=== PATIENT | female | born 1965 | race African-American/Black ===

== ENCOUNTER 2021-09-20 16:13 | Inpatient (IN) | payer OTHER ==
[2021-09-20 19:56] VITALS: BMI 29.4
[2021-09-20] MEDS ORDERED: LOPERAMIDE HCL 2 MG CAPSULE PO PRN (20:30)
[2021-09-20] MEDS ORDERED: BISMUTH SUBSALICYLATE 524 MG/30 ML PO PRN (20:30)
[2021-09-20] MEDS ORDERED: METHOCARBAMOL 500 MG TABLET PO PRN (20:30)
[2021-09-20] MEDS ORDERED: MAGNESIUM HYDROX 2400MG/30ML ORAL SUSPENSION 30 ML CUP PO PRN (20:30)
[2021-09-20] MEDS ORDERED: chlordiazePOXIDE HCL 25 MG CAPSULE PO PRN (20:30)
[2021-09-20] MEDS ORDERED: MAGNESIUM CITRATE 300 ML BOTTLE PO PRN (20:30)
[2021-09-20] MEDS ORDERED: BENZOCAINE/MENTHOL (CHLORASEPTIC ) LOZENGE MM PRN (20:30)
[2021-09-20] MEDS ORDERED: DICYCLOMINE HCL 10 MG CAPSULE PO PRN (20:30)
[2021-09-20] MEDS ORDERED: IBUPROFEN 600 MG TABLET (FP) PO PRN (20:30)
[2021-09-20] MEDS ORDERED: ACETAMINOPHEN 325 MG TABLET (FP) PO PRN ×2 (20:30)
[2021-09-20] MEDS ORDERED: ONDANSETRON *ODT* 4 MG TABLET SL PRN (20:30)
[2021-09-20] MEDS ORDERED: MAG HYDROX/AL HYDROX/SIMETH 30 ML UNIT-DOSE CUP PO PRN (20:30)
[2021-09-20] MEDS ORDERED: IBUPROFEN 400 MG TABLET (FP) PO PRN (20:30)
[2021-09-20] MEDS: THIAMINE HCL 100 MG TABLET (FP) PO SCH (23:37)
[2021-09-20] MEDS: MELATONIN 5 MG TABLETS PO SCH (23:37)
[2021-09-20] MEDS: chlordiazePOXIDE HCL 25 MG CAPSULE PO SCH (23:37)
[2021-09-21] MEDS: chlordiazePOXIDE HCL 25 MG CAPSULE PO SCH ×4 (06:35→22:24)
[2021-09-21 11:20] LABS: HEMATOCRIT 35.5 % (32.4-45.2); MCH 29.9 pg (25.7-33.7); MCHC 33.9 g/dl (32.0-36.0); MEAN CELL VOLUME 88.4 fl (80-96); MEAN PLT VOLUME 9.9 fl (7.5-11.1); PLATELET COUNT 275 10^3/uL (134-434); RBC 4.01 M/mm3 (3.60-5.2); RDW 14.9 % (11.6-15.6); WHITE BLOOD COUNT 6.1 K/mm3 (4.0-10.0)
[2021-09-21 11:37] LABS: ALBUMIN 3.4 g/dl (3.4-5.0); BLOOD UREA NITROGEN 19.3 mg/dL (7-18); CALCIUM 10.3 mg/dL (8.5-10.1)
[2021-09-21 11:41] LABS: BILIRUBIN,TOTAL 0.6 mg/dL (0.2-1)
[2021-09-21 11:44] LABS: TOT PROT 6.2 g/dl (6.4-8.2)
[2021-09-21] MEDS: LOSARTAN POTASSIUM 50 MG TABLET PO SCH (12:05)
[2021-09-21] MEDS: PRENATAL VITAMINS W/ FOLIC ACID TABLET (FP) PO SCH (12:06)
[2021-09-21] MEDS: NICOTINE 14 MG/24 HOURS TOPICAL PATCH TD SCH (12:06)
[2021-09-21] MEDS: NICOTINE 10 MG CARTRIDGE (INHALER) IH PRN (18:10)
[2021-09-21 20:29] LABS: HIV INTERPRETATION NEGATIVE (NEGATIVE)
[2021-09-21] MEDS: MELATONIN 5 MG TABLETS PO SCH (22:23)
[2021-09-21] MEDS: THIAMINE HCL 100 MG TABLET (FP) PO SCH (22:23)
[2021-09-22] MEDS: chlordiazePOXIDE HCL 25 MG CAPSULE PO SCH ×4 (06:46→22:39)
[2021-09-22] MEDS: LOSARTAN POTASSIUM 50 MG TABLET PO SCH (10:52)
[2021-09-22] MEDS: PRENATAL VITAMINS W/ FOLIC ACID TABLET (FP) PO SCH (10:52)
[2021-09-22] MEDS: NICOTINE 14 MG/24 HOURS TOPICAL PATCH TD SCH (10:53)
[2021-09-22] MEDS: MELATONIN 5 MG TABLETS PO SCH (22:39)
[2021-09-22] MEDS: THIAMINE HCL 100 MG TABLET (FP) PO SCH (22:39)
[2021-09-23] MEDS ORDERED: chlordiazePOXIDE HCL 10 MG CAPSULE PO PRN
[2021-09-23] MEDS: chlordiazePOXIDE HCL 10 MG CAPSULE PO SCH ×4 (06:41→22:49)
[2021-09-23] MEDS: PRENATAL VITAMINS W/ FOLIC ACID TABLET (FP) PO SCH (10:45)
[2021-09-23] MEDS: LOSARTAN POTASSIUM 50 MG TABLET PO SCH (10:45)
[2021-09-23] MEDS: NICOTINE 14 MG/24 HOURS TOPICAL PATCH TD SCH (10:46)
[2021-09-23] MEDS: MELATONIN 5 MG TABLETS PO SCH (22:48)
[2021-09-23] MEDS: THIAMINE HCL 100 MG TABLET (FP) PO SCH (22:48)
[2021-09-24] MEDS: chlordiazePOXIDE HCL 10 MG CAPSULE PO SCH ×2 (06:01→18:29)
[2021-09-24] MEDS: PRENATAL VITAMINS W/ FOLIC ACID TABLET (FP) PO SCH (10:14)
[2021-09-24] MEDS: NICOTINE 14 MG/24 HOURS TOPICAL PATCH TD SCH (10:14)
[2021-09-24] MEDS: LOSARTAN POTASSIUM 50 MG TABLET PO SCH (10:14)
[2021-09-24 22:16] VITALS: RESP 18
[2021-09-24] MEDS: THIAMINE HCL 100 MG TABLET (FP) PO SCH (22:50)
[2021-09-24] MEDS: MELATONIN 5 MG TABLETS PO SCH (22:50)
[2021-09-25] MEDS ORDERED: chlordiazePOXIDE HCL 10 MG CAPSULE PO ONE (05:00)
[2021-09-25] MEDS: NICOTINE 10 MG CARTRIDGE (INHALER) IH PRN ×2 (10:39→12:43)
[2021-09-25] MEDS: LOSARTAN POTASSIUM 50 MG TABLET PO SCH (10:39)
[2021-09-25] MEDS: NICOTINE 14 MG/24 HOURS TOPICAL PATCH TD SCH (10:39)
[2021-09-25] MEDS: PRENATAL VITAMINS W/ FOLIC ACID TABLET (FP) PO SCH (10:39)
[2021-09-25] MEDS ORDERED: cloNIDine HCL 0.1 MG TABLET PO ONE (15:30)
[2021-09-25] MEDS: THIAMINE HCL 100 MG TABLET (FP) PO SCH (22:27)
[2021-09-25] MEDS: MELATONIN 5 MG TABLETS PO SCH (22:27)
[2021-09-26] MEDS: LOSARTAN POTASSIUM 50 MG TABLET PO SCH (10:10)
[2021-09-26] MEDS: PRENATAL VITAMINS W/ FOLIC ACID TABLET (FP) PO SCH (10:10)
[2021-09-26] MEDS: NICOTINE 14 MG/24 HOURS TOPICAL PATCH TD SCH (10:11)
[2021-09-26] MEDS: NICOTINE 10 MG CARTRIDGE (INHALER) IH PRN (10:11)
[2021-09-26 13:00] VITALS: BP 138/89; PULSE 76; TEMP 97.8
== END 2021-09-26 16:02 | disposition home or self-care (01) | DRG 774 ==
LOC: YASAS 16:13 → Y3N 23:03
PROVIDERS: ADMIT Allergy & Immunology; ATTEND Surgery
PROC: HZ2ZZZZ Detoxification Services for Substance Abuse Treatment (ICD-10-PCS; principal; 2021-09-20)
DX: F10.230 Alcohol dependence with withdrawal, uncomplicated (principal); F14.20 Cocaine dependence, uncomplicated; F12.20 Cannabis dependence, uncomplicated; F17.210 Nicotine dependence, cigarettes, uncomplicated; F31.9 Bipolar disorder, unspecified; F41.9 Anxiety disorder, unspecified; I10 Essential (primary) hypertension; G47.00 Insomnia, unspecified; Z91.14 Patient's other noncompliance with medication regimen; Z56.0 Unemployment, unspecified
CPT/HCPCS: 36415; 80053; 85027; 86780; 87389; 87811; 93005; 93010; C9803-CS; U0003; U0005

== ENCOUNTER 2022-06-21 11:46 | Inpatient (IN) | payer OTHER ==
[2022-06-21 12:12] VITALS: BMI 31.3
[2022-06-21] MEDS ORDERED: ONDANSETRON *ODT* 4 MG TABLET SL PRN (15:21)
[2022-06-21] MEDS ORDERED: MAG HYDROX/AL HYDROX/SIMETH 30 ML UNIT-DOSE CUP PO PRN (15:21)
[2022-06-21] MEDS ORDERED: DICYCLOMINE HCL 10 MG CAPSULE PO PRN (15:21)
[2022-06-21] MEDS ORDERED: MAGNESIUM HYDROX 2400MG/30ML ORAL SUSPENSION 30 ML CUP PO PRN (15:21)
[2022-06-21] MEDS ORDERED: NALOXONE HCL (KLOXXADO) 8 MG SPRAY NS PRN (15:21)
[2022-06-21] MEDS ORDERED: NICOTINE 10 MG CARTRIDGE (INHALER) IH PRN (15:21)
[2022-06-21] MEDS ORDERED: chlordiazePOXIDE HCL 25 MG CAPSULE PO PRN (15:21)
[2022-06-21] MEDS ORDERED: IBUPROFEN 400 MG TABLET (FP) PO PRN (15:21)
[2022-06-21] MEDS ORDERED: NALOXONE HCL 0.4 MG/ML VIAL IM PRN (15:21)
[2022-06-21] MEDS ORDERED: COLLOIDAL OATMEAL 1 BAR EACH TP PRN (15:21)
[2022-06-21] MEDS ORDERED: NICOTINE POLACRILEX 2 MG GUM BUC PRN (15:21)
[2022-06-21] MEDS ORDERED: BENZOCAINE/MENTHOL (CHLORASEPTIC ) LOZENGE MM PRN (15:21)
[2022-06-21] MEDS ORDERED: BISMUTH SUBSALICYLATE 262 MG/15 ML BTL PO PRN (15:21)
[2022-06-21] MEDS ORDERED: ACETAMINOPHEN 325 MG TABLET (FP) PO PRN (15:21)
[2022-06-21] MEDS ORDERED: IBUPROFEN 600 MG TABLET (FP) PO PRN (15:21)
[2022-06-21] MEDS ORDERED: BENZONATATE 200 MG CAPSULE PO PRN (15:21)
[2022-06-21] MEDS ORDERED: AMMONIUM LACTATE 12% LOTION 225 GM BOTTLE TP PRN (15:21)
[2022-06-21] MEDS ORDERED: guaiFENesin 600 MG TABLET.ER (FP) PO PRN (15:21)
[2022-06-21] MEDS ORDERED: METHOCARBAMOL 500 MG TABLET PO PRN (15:21)
[2022-06-21] MEDS ORDERED: LOPERAMIDE HCL 2 MG CAPSULE PO PRN (15:21)
[2022-06-21] MEDS ORDERED: POLYETHYLENE GLYCOL (HEALTHYLAX) 3350 17 GM PACKET PO PRN (15:21)
[2022-06-21] MEDS: chlordiazePOXIDE HCL 25 MG CAPSULE PO SCH ×2 (16:15→22:56)
[2022-06-21] MEDS ORDERED: chlordiazePOXIDE HCL 25 MG CAPSULE ONE (16:28)
[2022-06-21 17:56] LABS: HEMATOCRIT 38.3 % (32.4-45.2); HEMOGLOBIN 13.1 GM/dL (10.7-15.3); MCH 29.7 pg (25.7-33.7); MCHC 34.4 g/dl (32.0-36.0); MEAN CELL VOLUME 86.3 fl (80-96); MEAN PLT VOLUME 8.8 fl (7.5-11.1); PLATELET COUNT 344 10^3/uL (134-434); RBC 4.43 M/mm3 (3.60-5.2); RDW 14.3 % (11.6-15.6); WHITE BLOOD COUNT 6.6 K/mm3 (4.0-10.0)
[2022-06-21 18:00] LABS: POTASSIUM 4.1 mmol/L (3.5-5.1)
[2022-06-21 18:05] LABS: ALBUMIN 3.7 g/dl (3.4-5.0); BLOOD UREA NITROGEN 12.4 mg/dL (7-18)
[2022-06-21 18:09] LABS: BILIRUBIN,TOTAL 0.4 mg/dL (0.2-1)
[2022-06-21] MEDS ORDERED: MELATONIN 5 MG TABLETS PO SCH (22:00)
[2022-06-21] MEDS: THIAMINE HCL 100 MG TABLET (FP) PO SCH (22:56)
[2022-06-22] MEDS: chlordiazePOXIDE HCL 25 MG CAPSULE PO SCH ×4 (05:55→22:35)
[2022-06-22] MEDS: LOSARTAN POTASSIUM 50 MG TABLET PO SCH (10:47)
[2022-06-22] MEDS: PRENATAL VITAMINS W/ FOLIC ACID TABLET (FP) PO SCH (10:57)
[2022-06-22] MEDS: THIAMINE HCL 100 MG TABLET (FP) PO SCH (22:34)
[2022-06-23] MEDS: chlordiazePOXIDE HCL 25 MG CAPSULE PO SCH ×4 (06:00→22:43)
[2022-06-23] MEDS: PRENATAL VITAMINS W/ FOLIC ACID TABLET (FP) PO SCH (10:06)
[2022-06-23] MEDS: LOSARTAN POTASSIUM 50 MG TABLET PO SCH ×2 (10:06→18:30)
[2022-06-23] MEDS: THIAMINE HCL 100 MG TABLET (FP) PO SCH (22:43)
[2022-06-23] MEDS: traZODone HCL 100 MG TABLET (FP) PO PRN (22:43)
[2022-06-24] MEDS ORDERED: chlordiazePOXIDE HCL 10 MG CAPSULE PO PRN
[2022-06-24] MEDS: chlordiazePOXIDE HCL 10 MG CAPSULE PO SCH ×4 (06:10→22:13)
[2022-06-24] MEDS: PRENATAL VITAMINS W/ FOLIC ACID TABLET (FP) PO SCH (10:55)
[2022-06-24] MEDS: LOSARTAN POTASSIUM 50 MG TABLET PO SCH (10:55)
[2022-06-24] MEDS: THIAMINE HCL 100 MG TABLET (FP) PO SCH (22:13)
[2022-06-24] MEDS: traZODone HCL 100 MG TABLET (FP) PO PRN (22:13)
[2022-06-25] MEDS: chlordiazePOXIDE HCL 10 MG CAPSULE PO SCH ×2 (05:55→17:22)
[2022-06-25] MEDS: LOSARTAN POTASSIUM 50 MG TABLET PO SCH (09:38)
[2022-06-25] MEDS: PRENATAL VITAMINS W/ FOLIC ACID TABLET (FP) PO SCH (09:38)
[2022-06-25 12:03] LABS: CALCIUM 10.3 mg/dL (8.5-10.1); CREATININE 0.9 mg/dL (0.55-1.3)
[2022-06-25] MEDS: THIAMINE HCL 100 MG TABLET (FP) PO SCH (22:22)
[2022-06-26] MEDS ORDERED: chlordiazePOXIDE HCL 10 MG CAPSULE PO ONE (05:00)
[2022-06-26] MEDS: PRENATAL VITAMINS W/ FOLIC ACID TABLET (FP) PO SCH (09:30)
[2022-06-26] MEDS: LOSARTAN POTASSIUM 50 MG TABLET PO SCH (09:30)
[2022-06-26 10:59] VITALS: BP 152/92; PULSE 81; RESP 17; TEMP 97
== END 2022-06-26 12:36 | disposition other institution (70) | DRG 774 ==
LOC: YASAS 11:46 → Y6N 15:39
PROVIDERS: ADMIT Allergy & Immunology; ATTEND Surgery
PROC: HZ2ZZZZ Detoxification Services for Substance Abuse Treatment (ICD-10-PCS; principal; 2022-06-21)
DX: F10.230 Alcohol dependence with withdrawal, uncomplicated (principal); F14.20 Cocaine dependence, uncomplicated; F12.20 Cannabis dependence, uncomplicated; F17.210 Nicotine dependence, cigarettes, uncomplicated; F31.9 Bipolar disorder, unspecified; F19.282 Other psychoactive substance dependence with psychoactive substance-induced sleep disorder; E83.52 Hypercalcemia; E87.8 Other disorders of electrolyte and fluid balance, not elsewhere classified; G47.00 Insomnia, unspecified; I10 Essential (primary) hypertension; R73.9 Hyperglycemia, unspecified; Z62.810 Personal history of physical and sexual abuse in childhood; Z91.410 Personal history of adult physical and sexual abuse
CPT/HCPCS: 36415; 80048; 80053; 82140; 83036; 85027; 86780; C9803-CS; Q0162; U0003; U0005

== ENCOUNTER 2022-06-26 12:43 | Inpatient (IN) | payer OTHER ==
[2022-06-26] MEDS ORDERED: POLYETHYLENE GLYCOL (HEALTHYLAX) 3350 17 GM PACKET PO PRN (14:01)
[2022-06-26] MEDS ORDERED: BACLOFEN 10 MG TABLET (FP) PO PRN (14:01)
[2022-06-26] MEDS ORDERED: COLLOIDAL OATMEAL 1 BAR EACH TP PRN (14:01)
[2022-06-26] MEDS ORDERED: IBUPROFEN 400 MG TABLET (FP) PO PRN (14:01)
[2022-06-26] MEDS ORDERED: BENZOCAINE/MENTHOL (CHLORASEPTIC ) LOZENGE MM PRN (14:01)
[2022-06-26] MEDS ORDERED: MAG HYDROX/AL HYDROX/SIMETH 30 ML UNIT-DOSE CUP PO PRN (14:01)
[2022-06-26] MEDS ORDERED: IBUPROFEN 600 MG TABLET (FP) PO PRN (14:01)
[2022-06-26] MEDS ORDERED: guaiFENesin 600 MG TABLET.ER (FP) PO PRN (14:01)
[2022-06-26] MEDS ORDERED: NICOTINE 10 MG CARTRIDGE (INHALER) IH PRN (14:01)
[2022-06-26] MEDS ORDERED: BENZONATATE 200 MG CAPSULE PO PRN (14:01)
[2022-06-26] MEDS ORDERED: ACETAMINOPHEN 325 MG TABLET (FP) PO PRN (14:01)
[2022-06-26] MEDS ORDERED: AMMONIUM LACTATE 12% LOTION 225 GM BOTTLE TP PRN (14:01)
[2022-06-26] MEDS ORDERED: NALOXONE HCL 0.4 MG/ML VIAL IVPUSH PRN (14:01)
[2022-06-26] MEDS ORDERED: MAGNESIUM HYDROX 2400MG/30ML ORAL SUSPENSION 30 ML CUP PO PRN (14:01)
[2022-06-26] MEDS ORDERED: LOPERAMIDE HCL 2 MG CAPSULE PO PRN (14:01)
[2022-06-26] MEDS ORDERED: NALOXONE HCL (KLOXXADO) 8 MG SPRAY NS PRN (14:01)
[2022-06-26] MEDS: hydrOXYzine PAMOATE 25 MG CAPSULE (FP) PO PRN (14:35)
[2022-06-26] MEDS: MELATONIN 5 MG TABLETS PO SCH (21:36)
[2022-06-26] MEDS: THIAMINE HCL 100 MG TABLET (FP) PO SCH (21:36)
[2022-06-26] MEDS: traZODone HCL 100 MG TABLET (FP) PO PRN (21:37)
[2022-06-27] MEDS: PRENATAL VITAMINS W/ FOLIC ACID TABLET (FP) PO SCH (10:19)
[2022-06-27] MEDS: LOSARTAN POTASSIUM 50 MG TABLET PO SCH (10:19)
[2022-06-27] MEDS: hydrOXYzine PAMOATE 25 MG CAPSULE (FP) PO PRN (10:19)
[2022-06-27] MEDS: MELATONIN 5 MG TABLETS PO SCH (21:54)
[2022-06-27] MEDS: THIAMINE HCL 100 MG TABLET (FP) PO SCH (21:54)
[2022-06-27] MEDS: traZODone HCL 100 MG TABLET (FP) PO PRN (21:54)
[2022-06-28] MEDS: PRENATAL VITAMINS W/ FOLIC ACID TABLET (FP) PO SCH (10:28)
[2022-06-28] MEDS: hydrOXYzine PAMOATE 25 MG CAPSULE (FP) PO PRN (10:28)
[2022-06-28] MEDS: LOSARTAN POTASSIUM 50 MG TABLET PO SCH (10:28)
[2022-06-28] MEDS: THIAMINE HCL 100 MG TABLET (FP) PO SCH (22:28)
[2022-06-28] MEDS: MELATONIN 5 MG TABLETS PO SCH (22:28)
[2022-06-29] MEDS: PRENATAL VITAMINS W/ FOLIC ACID TABLET (FP) PO SCH (09:47)
[2022-06-29] MEDS: LOSARTAN POTASSIUM 50 MG TABLET PO SCH (09:47)
[2022-06-29] MEDS: hydrOXYzine PAMOATE 25 MG CAPSULE (FP) PO PRN ×2 (09:47→21:34)
[2022-06-29] MEDS: LACTULOSE 20 GM/30 ML UDC (FOR ORAL USE ONLY) PO SCH (21:34)
[2022-06-29] MEDS: THIAMINE HCL 100 MG TABLET (FP) PO SCH (21:34)
[2022-06-29] MEDS: MELATONIN 5 MG TABLETS PO SCH (21:34)
[2022-06-29] MEDS: traZODone HCL 100 MG TABLET (FP) PO PRN (21:36)
[2022-06-30] MEDS: LACTULOSE 20 GM/30 ML UDC (FOR ORAL USE ONLY) PO SCH ×2 (10:15→21:25)
[2022-06-30] MEDS: PRENATAL VITAMINS W/ FOLIC ACID TABLET (FP) PO SCH (10:15)
[2022-06-30] MEDS: LOSARTAN POTASSIUM 50 MG TABLET PO SCH (10:15)
[2022-06-30] MEDS: THIAMINE HCL 100 MG TABLET (FP) PO SCH (21:25)
[2022-06-30] MEDS: traZODone HCL 100 MG TABLET (FP) PO PRN (21:25)
[2022-06-30] MEDS: MELATONIN 5 MG TABLETS PO SCH (21:45)
[2022-07-01] MEDS: LACTULOSE 20 GM/30 ML UDC (FOR ORAL USE ONLY) PO SCH ×2 (10:22→21:15)
[2022-07-01] MEDS: PRENATAL VITAMINS W/ FOLIC ACID TABLET (FP) PO SCH (10:22)
[2022-07-01] MEDS: LOSARTAN POTASSIUM 50 MG TABLET PO SCH (10:22)
[2022-07-01] MEDS: THIAMINE HCL 100 MG TABLET (FP) PO SCH (21:15)
[2022-07-01] MEDS: traZODone HCL 100 MG TABLET (FP) PO PRN (21:15)
[2022-07-01] MEDS: hydrOXYzine PAMOATE 25 MG CAPSULE (FP) PO PRN (21:15)
[2022-07-01] MEDS: MELATONIN 5 MG TABLETS PO SCH (21:59)
[2022-07-02] MEDS: PRENATAL VITAMINS W/ FOLIC ACID TABLET (FP) PO SCH (10:09)
[2022-07-02] MEDS: LACTULOSE 20 GM/30 ML UDC (FOR ORAL USE ONLY) PO SCH ×2 (10:10→21:42)
[2022-07-02] MEDS: LOSARTAN POTASSIUM 50 MG TABLET PO SCH (10:11)
[2022-07-02] MEDS: MELATONIN 5 MG TABLETS PO SCH (21:42)
[2022-07-02] MEDS: traZODone HCL 100 MG TABLET (FP) PO PRN (21:42)
[2022-07-02] MEDS: ATORVASTATIN CA 10 MG TABLET (FP) PO SCH (21:42)
[2022-07-02] MEDS: GABAPENTIN 300 MG CAPSULE PO SCH (21:42)
[2022-07-02] MEDS: THIAMINE HCL 100 MG TABLET (FP) PO SCH (21:42)
[2022-07-03] MEDS: PRENATAL VITAMINS W/ FOLIC ACID TABLET (FP) PO SCH (09:54)
[2022-07-03] MEDS: LOSARTAN POTASSIUM 50 MG TABLET PO SCH (09:54)
[2022-07-03] MEDS: CHLORTHALIDONE 25 MG TABLET PO SCH (09:54)
[2022-07-03] MEDS: GABAPENTIN 300 MG CAPSULE PO SCH ×2 (09:54→21:41)
[2022-07-03] MEDS: LACTULOSE 20 GM/30 ML UDC (FOR ORAL USE ONLY) PO SCH ×2 (09:54→21:41)
[2022-07-03] MEDS: ARIPiprazole 5 MG TABLET PO SCH (09:54)
[2022-07-03] MEDS: THIAMINE HCL 100 MG TABLET (FP) PO SCH (21:41)
[2022-07-03] MEDS: ATORVASTATIN CA 10 MG TABLET (FP) PO SCH (21:41)
[2022-07-03] MEDS: MELATONIN 5 MG TABLETS PO SCH (21:41)
[2022-07-03] MEDS: traZODone HCL 100 MG TABLET (FP) PO PRN (21:41)
[2022-07-04] MEDS: LACTULOSE 20 GM/30 ML UDC (FOR ORAL USE ONLY) PO SCH ×2 (09:48→21:37)
[2022-07-04] MEDS: GABAPENTIN 300 MG CAPSULE PO SCH ×2 (09:48→21:37)
[2022-07-04] MEDS: LOSARTAN POTASSIUM 50 MG TABLET PO SCH (09:48)
[2022-07-04] MEDS: PRENATAL VITAMINS W/ FOLIC ACID TABLET (FP) PO SCH (09:48)
[2022-07-04] MEDS: ARIPiprazole 5 MG TABLET PO SCH (09:49)
[2022-07-04] MEDS: CHLORTHALIDONE 25 MG TABLET PO SCH (09:49)
[2022-07-04] MEDS: THIAMINE HCL 100 MG TABLET (FP) PO SCH (21:37)
[2022-07-04] MEDS: traZODone HCL 100 MG TABLET (FP) PO PRN (21:37)
[2022-07-04] MEDS: ATORVASTATIN CA 10 MG TABLET (FP) PO SCH (21:37)
[2022-07-04] MEDS: MELATONIN 5 MG TABLETS PO SCH (21:37)
[2022-07-05] MEDS: PRENATAL VITAMINS W/ FOLIC ACID TABLET (FP) PO SCH (10:25)
[2022-07-05] MEDS: GABAPENTIN 300 MG CAPSULE PO SCH ×2 (10:25→21:28)
[2022-07-05] MEDS: ARIPiprazole 5 MG TABLET PO SCH (10:25)
[2022-07-05] MEDS: LOSARTAN POTASSIUM 50 MG TABLET PO SCH (10:25)
[2022-07-05] MEDS: CHLORTHALIDONE 25 MG TABLET PO SCH (10:26)
[2022-07-05] MEDS: LACTULOSE 20 GM/30 ML UDC (FOR ORAL USE ONLY) PO SCH ×2 (10:26→21:28)
[2022-07-05] MEDS ORDERED: NICOTINE 14 MG/24 HOURS TOPICAL PATCH TD SCH (10:30)
[2022-07-05] MEDS: MELATONIN 5 MG TABLETS PO SCH (21:28)
[2022-07-05] MEDS: THIAMINE HCL 100 MG TABLET (FP) PO SCH (21:28)
[2022-07-05] MEDS: ATORVASTATIN CA 10 MG TABLET (FP) PO SCH (21:28)
[2022-07-06 08:24] VITALS: RESP 18
[2022-07-06] MEDS: PRENATAL VITAMINS W/ FOLIC ACID TABLET (FP) PO SCH (10:12)
[2022-07-06] MEDS: LOSARTAN POTASSIUM 50 MG TABLET PO SCH (10:12)
[2022-07-06] MEDS: CHLORTHALIDONE 25 MG TABLET PO SCH (10:13)
[2022-07-06] MEDS: GABAPENTIN 300 MG CAPSULE PO SCH ×2 (10:13→21:25)
[2022-07-06] MEDS: ARIPiprazole 5 MG TABLET PO SCH (10:13)
[2022-07-06] MEDS: LACTULOSE 20 GM/30 ML UDC (FOR ORAL USE ONLY) PO SCH ×2 (10:14→21:28)
[2022-07-06] MEDS: traZODone HCL 100 MG TABLET (FP) PO PRN (21:25)
[2022-07-06] MEDS: ATORVASTATIN CA 10 MG TABLET (FP) PO SCH (21:25)
[2022-07-06] MEDS: THIAMINE HCL 100 MG TABLET (FP) PO SCH (21:26)
[2022-07-06] MEDS: MELATONIN 5 MG TABLETS PO SCH (21:26)
[2022-07-07] MEDS: GABAPENTIN 300 MG CAPSULE PO SCH ×2 (10:33→21:29)
[2022-07-07] MEDS: LOSARTAN POTASSIUM 50 MG TABLET PO SCH (10:33)
[2022-07-07] MEDS: ARIPiprazole 5 MG TABLET PO SCH (10:33)
[2022-07-07] MEDS: LACTULOSE 20 GM/30 ML UDC (FOR ORAL USE ONLY) PO SCH ×2 (10:33→21:29)
[2022-07-07] MEDS: PRENATAL VITAMINS W/ FOLIC ACID TABLET (FP) PO SCH (10:35)
[2022-07-07] MEDS: CHLORTHALIDONE 25 MG TABLET PO SCH (10:35)
[2022-07-07] MEDS: traZODone HCL 100 MG TABLET (FP) PO PRN (21:29)
[2022-07-07] MEDS: ATORVASTATIN CA 10 MG TABLET (FP) PO SCH (21:30)
[2022-07-07] MEDS: THIAMINE HCL 100 MG TABLET (FP) PO SCH (21:59)
[2022-07-07] MEDS: MELATONIN 5 MG TABLETS PO SCH (21:59)
[2022-07-08] MEDS: ARIPiprazole 5 MG TABLET PO SCH (10:47)
[2022-07-08] MEDS: PRENATAL VITAMINS W/ FOLIC ACID TABLET (FP) PO SCH (10:47)
[2022-07-08] MEDS: GABAPENTIN 300 MG CAPSULE PO SCH ×2 (10:47→21:46)
[2022-07-08] MEDS: CHLORTHALIDONE 25 MG TABLET PO SCH (10:47)
[2022-07-08] MEDS: LACTULOSE 20 GM/30 ML UDC (FOR ORAL USE ONLY) PO SCH ×2 (10:47→21:47)
[2022-07-08] MEDS: LOSARTAN POTASSIUM 50 MG TABLET PO SCH (10:47)
[2022-07-08] MEDS: THIAMINE HCL 100 MG TABLET (FP) PO SCH (21:46)
[2022-07-08] MEDS: ATORVASTATIN CA 10 MG TABLET (FP) PO SCH (21:46)
[2022-07-08] MEDS: traZODone HCL 50 MG TABLET (FP) PO PRN (21:46)
[2022-07-08] MEDS: MELATONIN 5 MG TABLETS PO SCH (21:46)
[2022-07-08] MEDS: hydrOXYzine PAMOATE 25 MG CAPSULE (FP) PO PRN (21:47)
[2022-07-09] MEDS: LOSARTAN POTASSIUM 50 MG TABLET PO SCH (14:41)
[2022-07-09] MEDS: GABAPENTIN 300 MG CAPSULE PO SCH ×2 (14:41→21:50)
[2022-07-09] MEDS: PRENATAL VITAMINS W/ FOLIC ACID TABLET (FP) PO SCH (14:41)
[2022-07-09] MEDS: LACTULOSE 20 GM/30 ML UDC (FOR ORAL USE ONLY) PO SCH ×2 (14:41→21:50)
[2022-07-09] MEDS: ARIPiprazole 5 MG TABLET PO SCH (14:41)
[2022-07-09] MEDS: CHLORTHALIDONE 25 MG TABLET PO SCH (14:41)
[2022-07-09] MEDS: MELATONIN 5 MG TABLETS PO SCH (21:50)
[2022-07-09] MEDS: ATORVASTATIN CA 10 MG TABLET (FP) PO SCH (21:50)
[2022-07-09] MEDS: THIAMINE HCL 100 MG TABLET (FP) PO SCH (21:50)
[2022-07-10] MEDS: PRENATAL VITAMINS W/ FOLIC ACID TABLET (FP) PO SCH (10:04)
[2022-07-10] MEDS: GABAPENTIN 300 MG CAPSULE PO SCH ×2 (10:04→21:48)
[2022-07-10] MEDS: LACTULOSE 20 GM/30 ML UDC (FOR ORAL USE ONLY) PO SCH ×2 (10:04→21:50)
[2022-07-10] MEDS: LOSARTAN POTASSIUM 50 MG TABLET PO SCH (10:04)
[2022-07-10] MEDS: ARIPiprazole 5 MG TABLET PO SCH (10:04)
[2022-07-10] MEDS: CHLORTHALIDONE 25 MG TABLET PO SCH (10:05)
[2022-07-10] MEDS: THIAMINE HCL 100 MG TABLET (FP) PO SCH (21:48)
[2022-07-10] MEDS: ATORVASTATIN CA 10 MG TABLET (FP) PO SCH (21:48)
[2022-07-10] MEDS: MELATONIN 5 MG TABLETS PO SCH (21:48)
[2022-07-10] MEDS: traZODone HCL 50 MG TABLET (FP) PO PRN (21:48)
[2022-07-11] MEDS: PRENATAL VITAMINS W/ FOLIC ACID TABLET (FP) PO SCH (09:50)
[2022-07-11] MEDS: ARIPiprazole 5 MG TABLET PO SCH (09:51)
[2022-07-11] MEDS: GABAPENTIN 300 MG CAPSULE PO SCH ×2 (09:51→21:28)
[2022-07-11] MEDS: LOSARTAN POTASSIUM 50 MG TABLET PO SCH (09:51)
[2022-07-11] MEDS: LACTULOSE 20 GM/30 ML UDC (FOR ORAL USE ONLY) PO SCH ×2 (09:52→21:27)
[2022-07-11] MEDS: CHLORTHALIDONE 25 MG TABLET PO SCH (09:53)
[2022-07-11] MEDS: ATORVASTATIN CA 10 MG TABLET (FP) PO SCH (21:27)
[2022-07-11] MEDS: traZODone HCL 50 MG TABLET (FP) PO PRN (21:27)
[2022-07-11] MEDS: THIAMINE HCL 100 MG TABLET (FP) PO SCH (21:28)
[2022-07-11] MEDS: MELATONIN 5 MG TABLETS PO SCH (21:28)
[2022-07-12] MEDS: PRENATAL VITAMINS W/ FOLIC ACID TABLET (FP) PO SCH (10:52)
[2022-07-12] MEDS: LOSARTAN POTASSIUM 50 MG TABLET PO SCH (10:52)
[2022-07-12] MEDS: ARIPiprazole 5 MG TABLET PO SCH (10:52)
[2022-07-12] MEDS: GABAPENTIN 300 MG CAPSULE PO SCH ×2 (10:52→21:26)
[2022-07-12] MEDS: CHLORTHALIDONE 25 MG TABLET PO SCH (10:53)
[2022-07-12] MEDS: ATORVASTATIN CA 10 MG TABLET (FP) PO SCH (21:25)
[2022-07-12] MEDS: traZODone HCL 50 MG TABLET (FP) PO PRN (21:25)
[2022-07-12] MEDS: MELATONIN 5 MG TABLETS PO SCH (21:25)
[2022-07-12] MEDS: THIAMINE HCL 100 MG TABLET (FP) PO SCH (21:25)
[2022-07-13 07:34] VITALS: BP 121/72; PULSE 62; TEMP 97.5
[2022-07-13] MEDS: ARIPiprazole 5 MG TABLET PO SCH (10:02)
[2022-07-13] MEDS: CHLORTHALIDONE 25 MG TABLET PO SCH (10:03)
[2022-07-13] MEDS: PRENATAL VITAMINS W/ FOLIC ACID TABLET (FP) PO SCH (10:03)
[2022-07-13] MEDS: GABAPENTIN 300 MG CAPSULE PO SCH (10:03)
[2022-07-13] MEDS: LOSARTAN POTASSIUM 50 MG TABLET PO SCH (10:03)
== END 2022-07-13 10:50 | disposition home or self-care (01) | DRG 772 ==
LOC: YASAS 12:43 → Y5N 12:44
PROVIDERS: ADMIT Allergy & Immunology; ATTEND Psychiatry & Neurology Pain Medicine
PROC: HZ42ZZZ Group Counseling for Substance Abuse Treatment, Cognitive-Behavioral (ICD-10-PCS; principal; 2022-06-26)
DX: F10.20 Alcohol dependence, uncomplicated (principal); F14.20 Cocaine dependence, uncomplicated; F17.210 Nicotine dependence, cigarettes, uncomplicated; F31.9 Bipolar disorder, unspecified; F41.9 Anxiety disorder, unspecified; R79.89 Other specified abnormal findings of blood chemistry; R73.03 Prediabetes
CPT/HCPCS: 36415; 82140; 82962; 84443; 86803; J0475

== ENCOUNTER 2023-06-13 11:26 | Inpatient (IN) | payer OTHER ==
[2023-06-13 12:06] VITALS: BMI 33.6
[2023-06-13] MEDS ORDERED: POLYETHYLENE GLYCOL (HEALTHYLAX) 3350 17 GM PACKET PO PRN (13:07)
[2023-06-13] MEDS ORDERED: guaiFENesin 600 MG TABLET.ER (FP) PO PRN (13:07)
[2023-06-13] MEDS ORDERED: NALOXONE HCL (KLOXXADO) 8 MG SPRAY NS PRN (13:07)
[2023-06-13] MEDS ORDERED: NALOXONE HCL 0.4 MG/ML VIAL IM PRN (13:07)
[2023-06-13] MEDS ORDERED: NICOTINE POLACRILEX 2 MG LOZENGE BC PRN (13:07)
[2023-06-13] MEDS ORDERED: MAGNESIUM HYDROX 2400MG/30ML ORAL SUSPENSION 30 ML CUP PO PRN (13:07)
[2023-06-13] MEDS ORDERED: LOPERAMIDE HCL 2 MG CAPSULE PO PRN (13:07)
[2023-06-13] MEDS ORDERED: ACETAMINOPHEN 325 MG TABLET (FP) PO PRN (13:07)
[2023-06-13] MEDS ORDERED: BENZONATATE 200 MG CAPSULE PO PRN (13:07)
[2023-06-13] MEDS ORDERED: BENZOCAINE/MENTHOL (CHLORASEPTIC ) LOZENGE MM PRN (13:07)
[2023-06-13] MEDS ORDERED: MAG HYDROX/AL HYDROX/SIMETH 30 ML UNIT-DOSE CUP PO PRN (13:07)
[2023-06-13] MEDS ORDERED: IBUPROFEN 400 MG TABLET (FP) PO PRN (13:07)
[2023-06-13] MEDS: PRENATAL VITAMINS W/ FOLIC ACID TABLET (FP) PO SCH (14:02)
[2023-06-13] MEDS: MELATONIN 5 MG TABLETS PO SCH (21:34)
[2023-06-13] MEDS: THIAMINE 100 MG TABLET PO SCH (21:34)
[2023-06-13] MEDS: metroNIDAZOLE 500 MG TABLET PO SCH (21:56)
[2023-06-14] MEDS ORDERED: metroNIDAZOLE 250 MG TABLET PO SCH ×2 (10:00→12:00)
[2023-06-14] MEDS ORDERED: SERTRALINE HCL 50 MG TABLET (FP) PO SCH (10:00)
[2023-06-14] MEDS ORDERED: amLODIPine BESYLATE 5 MG TABLET (FP) PO SCH (10:00)
[2023-06-14] MEDS ORDERED: LOSARTAN POTASSIUM 50 MG TABLET PO SCH (10:00)
[2023-06-14] MEDS ORDERED: OXYBUTYNIN CHLORIDE 5 MG TABLET PO SCH (10:00)
[2023-06-14] MEDS ORDERED: TOPIRAMATE 100 MG TABLET PO SCH (10:00)
[2023-06-14] MEDS: ARIPiprazole 5 MG TABLET PO SCH (10:05)
[2023-06-14 11:46] LABS: POTASSIUM 4.1 mmol/L (3.5-5.1)
[2023-06-14 11:49] LABS: PH,URINE 5.5 (5.0-8.0); URINE APPEARANCE CLEAR; URINE BILIRUBIN NEGATIVE (NEGATIVE); URINE COLOR YELLOW; URINE GLUCOSE (UA) NEGATIVE (NEGATIVE); URINE KETONE NEGATIVE (NEGATIVE); URINE LEUK ESTERASE NEGATIVE (NEGATIVE); URINE NITRITE NEGATIVE (NEGATIVE); URINE PROTEIN NEGATIVE (NEGATIVE); URINE UROBILINOGEN 0.2 mg/dL (0.2-1.0)
[2023-06-14 11:51] LABS: HEMOGLOBIN 11.8 GM/dL (10.7-15.3); MCH 29.4 pg (25.7-33.7); MCHC 33.8 g/dl (32.0-36.0); MEAN CELL VOLUME 87.1 fl (80-96); MEAN PLT VOLUME 9.6 fl (7.5-11.1); PLATELET COUNT 324 10^3/uL (134-434); RBC 4.02 M/mm3 (3.60-5.2); RDW 15.9 % (11.6-15.6); WHITE BLOOD COUNT 6.3 K/mm3 (4.0-10.0)
[2023-06-14 11:53] LABS: ALBUMIN 3.5 g/dl (3.4-5.0); BLOOD UREA NITROGEN 15.8 mg/dL (7-18)
[2023-06-14 11:56] LABS: CREATININE 0.8 mg/dL (0.55-1.3)
[2023-06-14 11:58] LABS: BILIRUBIN,TOTAL 0.3 mg/dL (0.2-1); TOT PROT 6.4 g/dl (6.4-8.2)
[2023-06-14 12:36] LABS: SYPHILIS W/ RPR CONF NON-REACTIVE (NONREACTIVE)
[2023-06-14] MEDS: metroNIDAZOLE 250 MG TABLET PO SCH (13:13)
[2023-06-15] MEDS: amLODIPine BESYLATE 5 MG TABLET (FP) PO SCH (06:30)
[2023-06-15] MEDS: OXYBUTYNIN CHLORIDE 5 MG TABLET PO SCH (06:30)
[2023-06-15] MEDS: LOSARTAN POTASSIUM 50 MG TABLET PO SCH (06:30)
[2023-06-15] MEDS: SERTRALINE HCL 50 MG TABLET (FP) PO SCH (06:30)
[2023-06-15] MEDS: TOPIRAMATE 100 MG TABLET PO SCH (06:31)
[2023-06-17] MEDS: amLODIPine BESYLATE 5 MG TABLET (FP) PO SCH (11:05)
[2023-06-20] MEDS: hydrOXYzine PAMOATE 25 MG CAPSULE (FP) PO PRN (22:39)
[2023-06-21 06:54] VITALS: RESP 18
[2023-06-22 12:35] LABS: MAGNESIUM 2.2 mg/dL (1.8-2.4)
[2023-06-22 12:36] LABS: INR 0.99 (0.83-1.09); PROTHROMBIN TIME (PATIENT) 11.2 SEC (9.7-13.0)
[2023-06-24] MEDS: IBUPROFEN 600 MG TABLET (FP) PO PRN (10:09)
[2023-06-24] MEDS: LACTULOSE 20 GM/30 ML UDC (FOR ORAL USE ONLY) PO SCH (14:37)
[2023-06-25 09:19] VITALS: BP 135/75; PULSE 78; TEMP 97.7
[2023-06-25] MEDS ORDERED: CHOLECALCIFEROL (VIT D3) 400 UNIT (10 MCG) TABLET PO SCH (10:00)
== END 2023-06-25 10:35 | disposition left against medical advice (07) | DRG 770 ==
LOC: YASAS 11:26 → Y3NR 13:38 → Y5N 06-14 11:07 → Y3NR 06-24 21:29
PROVIDERS: ADMIT Allergy & Immunology; ATTEND Psychiatry & Neurology Pain Medicine
PROC: HZ42ZZZ Group Counseling for Substance Abuse Treatment, Cognitive-Behavioral (ICD-10-PCS; principal; 2023-06-13)
DX: F14.10 Cocaine abuse, uncomplicated (principal); F11.20 Opioid dependence, uncomplicated; F10.20 Alcohol dependence, uncomplicated; F12.20 Cannabis dependence, uncomplicated; F17.210 Nicotine dependence, cigarettes, uncomplicated; F31.9 Bipolar disorder, unspecified; F41.9 Anxiety disorder, unspecified; E72.20 Disorder of urea cycle metabolism, unspecified; E78.5 Hyperlipidemia, unspecified; I10 Essential (primary) hypertension; E11.9 Type 2 diabetes mellitus without complications; Z62.810 Personal history of physical and sexual abuse in childhood; Z91.410 Personal history of adult physical and sexual abuse; Z63.8 Other specified problems related to primary support group; Z63.0 Problems in relationship with spouse or partner
CPT/HCPCS: 36415; 80053; 80305; 81003; 82140; 82306; 83036; 83735; 84443; 85027; 85610; 86780; 86803; 87811; 93005; 93010